=== PATIENT | male | born 1985 | race Caucasian/White ===

== ENCOUNTER 2023-06-26 20:45 | Emergency (ER) | payer SELFPAY ==
[2023-06-26 21:03] VITALS: BP 125/48; PULSE 57; RESP 18; TEMP 36.3; O2SAT 95; BMI 31.2
--- NOTE | 2023-06-27 00:55 | ED_ITS ---
HPI - Skin/Abscess/Foreign Bdy General Chief complaint: Skin/Abscess/Foreign Body Stated complaint: R toe injury Time Seen by Provider: 06/27/23 00:55 Source: patient Mode of arrival: ambulatory Limitations: no limitations History of Present Illness HPI narrative: 38yo male here with complaints of athletes foot to right foot 4th/5th toes for many months despite using intermittent OTC antifungal creams. Does not feel it is helping. Related Data Allergies Allergy/AdvReac Type Severity Reaction Status Date / Time No Known Allergies Allergy Verified 06/26/23 21:02 Review of Systems Review of Systems: Yes all other systems are reviewed and are negative Constitutional: Constitutional: Reports no additional constitutional complaints, Denies body ache(s), Denies chills, Denies fever(s), Denies headache(s) and Denies weakness Eyes: Eyes: Reports no additional eye complaints and Denies change in vision ENT: Reports system reviewed and no additional complaints, except as documented, Denies dizziness, Denies headache(s), Denies nasal congestion, Denies nasal discharge and Denies neck pain Cardiovascular: Cardiovascular: Reports no additional cardiovascular complaints, Denies chest pain, Denies leg edema and Denies dyspnea Respiratory: Respiratory: Reports no additional respiratory complaints, Denies cough and Denies dyspnea Gastrointestinal: Gastrointestinal: Reports no additional gastrointestinal complaints, Denies abdominal pain, Denies diarrhea, Denies nausea and Denies vomiting Genitourinary: Genitourinary: Denies urinary incontinence Musculoskeletal: Musculoskeletal: Reports no additional musculoskeletal complaints, Denies back pain, Denies arthralgias, Denies joint swelling, Denies neck pain, Denies numbness and Denies tingling Integumentary/Breasts: Skin/Breast: Reports system reviewed and no additional complaints, except as docu, Reports erythema and Denies rash Neurologic: Reports system reviewed and no additional complaints, except as documented, Denies Abnormal speech present, Denies dizziness, Denies headache(s), Denies numbness, Denies tingling and Denies weakness PMFSH Past Medical History Attestation statement: The following information was validated with the patient. Source: old records reviewed and nursing notes reviewed Physical Exam Vital Signs: Vital Signs: Last Vital Signs Temp 97.4 F 06/26/23 21:03 Pulse 57 06/26/23 21:03 Resp 18 06/26/23 21:03 BP 125/48 L 06/26/23 21:03 Pulse Ox 95 06/26/23 21:03 O2 Del Method Room Air 06/26/23 21:03 BMI result Body Mass Index 31.2 Const: General: cooperative, healthy appearing, comfortable and no acute distress Orientation/consciousness: patient oriented x3 Limitations: no limitations HEENT: Head: Yes normal to inspection Ears: hearing grossly normal bilaterally General nose exam: Normal external nose present Face and sinus: Yes normal facial exam Mouth: Normal oral and palatal mucosa present Throat: Yes posterior oropharynx normal Eyes: General: appearance normal, both eyes and all related structures Pupils: Equal, round and reactive pupils present Neck: Neck: Yes normal visual inspection Chest: Chest palpation & inspection: normal inspection of the chest Resp: Effort & Inspection: normal respiratory effort Auscultation: clear to auscultation bilaterally Cardio: Rate: regular rate Rhythm: regular rhythm Peripheral pulses: Peripheral pulses 2+ throughout GI: Inspection: Yes normal to inspection Palpation (GI): Soft to palpation and nontender Auscultation: normal bowel sounds Back/Spine/Pelvis: Thoracic/Lumbar Spine: thoracic and lumbar spine normal to inspection Skin: General skin exam: no rashes or lesions noted Neuro: General: patient oriented x3, no focal motor deficits and normal sensation to monofilament Cranial nerves: Yes Equal, round and reactive pupils present Cognition (Neuro): normal cognition Speech: No Abnormal speech present Gait exam (Neuro): Normal gait present Motor exam (neuro): 5/5 motor strength present throughout Extrem: Other: In between the 4th and 5th toes there is erythema, discomfort, with abrasions/ fissures in the skin Medical Decision Making Medical Decision Making MDM Narrative: 38 yo male here with athletes foot to right foot for many months despite intermittent uses of antifungal creams. On exam mild tinea pedis. It sounds like the patient is only intermittently compliant, also not treating shoes/socks or shower/tub surfaces. Also we discussed powder is likely going to be better. Recommended patient use for at least >4 weeks with lotrimin powder and treating above. Differential Diagnosis Differential Diagnoses: The differential diagnosis associated with the presentation includes tinea pedis Low concern for cellulitis Prescription Management I considered prescription management with: Antibiotic no evidence of cellulitis necessitating antibiotic use. Discharge Plan Discharge Clinical Impression: Tinea pedis Patient Disposition: Home, Self-Care Instructions: Athlete's Foot (ED) Additional Instructions: Buy lotrimin powder and treat feet, socks and shoes Wash shower floors with bleach containing product Keep toes and in between the toes as dry as possible Treat the toes for at least 8 weeks Referrals: Physician,Caprice J [Primary Care Provider] - 1 week
== END 2023-06-27 01:01 | disposition home or self-care (01) ==
LOC: HO.ED 06-27 01:00
PROVIDERS: Emergency Provider Emergency Medicine
DX: B35.3 Tinea pedis (principal)
CPT/HCPCS: 99282

== ENCOUNTER 2023-12-02 09:52 | Outpatient (REF) | payer OTHER, SELFPAY ==
[2023-12-02 12:34] LABS: Anion Gap 14 (12-20); Blood Urea Nitrogen 14 mg/dL (9-16); Calcium 9.5 mg/dL (8.4-10.2); Carbon Dioxide 24 mmol/L (22-29); Chloride 104 mmol/L (96-108); Cholesterol 200 mg/dL (<200); Estimated Glomerular Filt Rate > 60; Glucose Random 96 mg/dL (60-115); HDL Cholesterol 46 mg/dL (>40); LDL Cholesterol Calculated 137 mg/dL (<100); Potassium 4.2 mmol/L (3.3-5.1); Sodium 138 mmol/L (135-145); Triglycerides 87 mg/dL (<150)
[2023-12-02 12:48] LABS: HIV AB/AG Nonreactive (Nonreactive); HIV Num 1 0.24 S/CO (0.00-0.99); ~HepC Num1 0.09 S/CO (0.00-0.79); ~Hepatitis C Antibody Nonreactive (Nonreactive)
== END 2023-12-02 09:53 | disposition home or self-care (01) ==
LOC: HO.HHCL 09:52
PROVIDERS: Visit Provider Nurse Practitioner Family
DX: Z00.00 Encounter for general adult medical examination without abnormal findings (principal)
CPT/HCPCS: 36415; 80048; 80061; 86803; 87389

== ENCOUNTER 2023-12-28 15:00 | Outpatient (RCR) | payer OTHER, SELFPAY | END 2024-01-04 16:18 | disposition home or self-care (01) | LOC: HO.PT 15:00 | PROVIDERS: PCP Physician Assistant; Visit Provider Nurse Practitioner Family | DX: M25.511 Pain in right shoulder (principal) | CPT/HCPCS: 97110; 97112; 97162 ==

== ENCOUNTER 2024-01-07 13:24 | Outpatient (REF) | payer OTHER, SELFPAY ==
--- NOTE | ~2024-01-07 | XR_ITS ---
EXAMINATION: XR SHOULDER, RIGHT CLINICAL INFORMATION: Atraumatic right shoulder pain. COMPARISON: None available. TECHNIQUE: AP external rotation, Grashey, scapular Y, and axillary views of the right shoulder. FINDINGS: Glenohumeral and acromioclavicular alignment is anatomic with normal joint space. No displaced fracture or dislocation. No abnormal soft tissue calcifications. XR/XR shoulder RT min 2V IMPRESSION: No acute abnormality.
== END 2024-01-07 13:25 | disposition home or self-care (01) ==
LOC: HO.HHCX 13:24
PROVIDERS: Visit Provider Emergency Medicine
DX: M25.511 Pain in right shoulder (principal); G89.29 Other chronic pain
CPT/HCPCS: 73030

== ENCOUNTER 2024-03-18 15:53 | Outpatient (REF) | payer MEDICAID, SELFPAY | END 2024-03-18 15:54 | disposition home or self-care (01) | LOC: HO.HHCL 15:53 | PROVIDERS: Visit Provider Emergency Medicine | DX: Z13.89 Encounter for screening for other disorder (principal) ==

== ENCOUNTER 2024-03-21 14:03 | Outpatient (AMB) | payer MEDICAID, SELFPAY ==
--- NOTE | 2024-03-21 14:41 | MHC.OFFVIS ---
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 Patient reports ongoing pain for about 7 - 8 months. 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 However he started to feel a sharp pain in his shoulder a couple weeks after. Allergies No Known Allergies Allergy (Verified 03/21/24 14:48) HPI HPI MEDIA PLANNER-Right shoulder pain-follow up: Details: 38-year-old right hand dominant male who presents in the office today, as a new patient, for an evaluation of right shoulder pain. Patient was referred to the office by Family Medicine status post a complaint of 3 months, since 10/2023, of right shoulder pain. X-rays were obtained. 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 He states he was using a ratchet strap, and he was ratcheting something on to the back of the truck, and when he brought his arm up, he brought it up and back overextending the right upper extremity on 10/13/2023. He reports he can move the right upper extremity with pain but cannot lift without the help of the left upper extremity. Patient reports attending 5-6 formal physical therapy sessions and continuing to work with the home exercise program. He states this has given him no relief of symptoms. 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 He reports he will be leaving in 8 days 03/29/2024 to go for a one-month training. [facility] Social History (Updated 03/21/24 @ 14:45 by Lavinia Sorensen) Alcohol intake: never Patient Tobacco Use Status: Never used Tobacco Current occupational status: employed Current occupation: truck drive/ right hand dominant Review of Systems Const All systems reviewed & are unremarkable except as noted in HPI and below Physical Exam Const General: cooperative and no acute distress Orientation/consciousness: patient oriented x3 Resp Effort & Inspection: normal respiratory effort and able to speak in complete sentences Cardio Peripheral pulses: Peripheral pulses 2+ throughout Skin General skin exam: no rashes or lesions noted Neuro General: patient oriented x3 Extrem Other: Right shoulder: Normal to inspection. No ecchymosis, erythema, or edema. Full shoulder ROM in all planes. Pain with cross-body reach. 3/5 strength with empty can. Negative drop arm. NVI. Assessment & Plan Assessment & Plan (1) Rotator cuff injury: Code(s): S46.009A - Unspecified injury of muscle(s) and tendon(s) of the rotator cuff of unspecified shoulder, initial encounter Category: Medical Qualifiers: Encounter type: initial encounter Laterality: right Qualified Code(s): S46.001A - Unspecified injury of muscle(s) and tendon(s) of the rotator cuff of right shoulder, initial encounter Plan Mr. Sears is a 38-year-old right hand dominant male who presents in the office today, as a new patient, for an evaluation of right shoulder pain. Patient was referred to the office by Family Medicine status post a complaint of 3 months, since 10/2023, of right shoulder pain. X-rays were obtained. 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 He states he was using a ratchet strap, and he was ratcheting something on to the back of the truck, and when he brought his arm up, he brought it up and back overextending the right upper extremity on 10/13/2023. He reports he can move the right upper extremity with pain but cannot lift without the help of the left upper extremity. Patient reports attending 5-6 formal physical therapy sessions and continuing to work with the home exercise program. He states this has given him no relief of symptoms. 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 He reports he will be leaving in 8 days 03/29/2024 to go for a one-month training. Discussed the role of cortisone injections but have agreed to defer at this time due to pain with ROM and weakness in strength. A referral for an MRI was made in the office today. My card was supplied to the patient, and he will call after the MRI is obtained. Due to his upcoming work training trip the patient understands that the MRI might not be obtained until after his return. Follow up will be after the MRI is obtained, or sooner if needed. X-rays of the right shoulder, obtained on 01/07/2024, revealed: No acute fracture or dislocation. Orders: Orders MR shoulder RT wo con 03/21/24 S46.009A - Unspecified injury of muscle(s) and tendon(s) of the rotator cuff of unspecified shoulder, initial encounter Patient Instructions: Scribed by Hiwot Miranda durable medical equipment technician, for Chana Costa PA-C on 03/21/2024 at 4:44 pm, EST. Coding Level of Care Code New Pt Level 4 (69542) Diagnoses Injury of right rotator cuff, initial encounter S46.001A Encounter type: initial encounter Laterality: right
== END 2024-03-21 15:31 | disposition home or self-care (01) ==
PROVIDERS: PCP Physician Assistant; Visit Provider Physician Assistant
DX: S46.001A Unspecified injury of muscle(s) and tendon(s) of the rotator cuff of right shoulder, initial encounter (principal)
CPT/HCPCS: 99204

== ENCOUNTER → 2024-03-21 14:03 | Outpatient (BNVA) | payer MEDICAID, SELFPAY | PROVIDERS: PCP Physician Assistant; Visit Provider Physician Assistant | DX: S46.001A Unspecified injury of muscle(s) and tendon(s) of the rotator cuff of right shoulder, initial encounter (principal); W22.09XA Striking against other stationary object, initial encounter; Y93.89 Activity, other specified; Y92.69 Other specified industrial and construction area as the place of occurrence of the external cause; Y99.0 Civilian activity done for income or pay | CPT/HCPCS: 99212 ==

== ENCOUNTER 2024-03-22 16:13 | Outpatient (REF) | payer MEDICAID, SELFPAY | END 2024-03-22 16:14 | disposition home or self-care (01) | LOC: HO.HHCLNP 16:13 | PROVIDERS: Visit Provider Emergency Medicine | DX: R19.7 Diarrhea, unspecified (principal) | CPT/HCPCS: 87338 ==

== ENCOUNTER 2024-04-15 17:56 | Outpatient (REF) | payer OTHER, SELFPAY | END 2024-04-15 17:57 | disposition home or self-care (01) | LOC: HO.HHCLNP 17:56 | PROVIDERS: Visit Provider Emergency Medicine | DX: A04.8 Other specified bacterial intestinal infections (principal) | CPT/HCPCS: 87338 ==

== ENCOUNTER 2024-04-21 18:50 | Outpatient (REF) | payer OTHER, SELFPAY ==
--- NOTE | ~2024-04-21 | MR_ITS ---
EXAMINATION: MR SHOULDER WITHOUT CONTRAST, RIGHT CLINICAL INFORMATION: Rotator cuff injury. COMPARISON: X-ray 01/07/2024 TECHNIQUE: MRI of the shoulder without contrast was performed on a high-field scanner. FINDINGS: ROTATOR CUFF: Mild tendinosis of the supraspinatus and anterior fibers of the infraspinatus. Possible small 3 mm intrasubstance tear in the conjoined fibers. Teres minor is intact. Mild subscapularis tendinosis, with a possible longitudinal thin linear intrasubstance partial tear. No muscle atrophy or fatty infiltration. BICEPS: Intact. CORACOACROMIAL ARCH: The undersurface of the acromion is curved with no subacromial spur. Moderate acromioclavicular arthritis, prominent distal clavicle and acromial edema, subchondral cysts. LABRUM/CAPSULE: Inferior labral tear, with a subjacent 8mm paralabral cyst. Superior labral intermediate signal could reflect degenerative signal. Intact inferior capsule. GLENOHUMERAL JOINT/MARROW: No acute fracture. No significant arthropathy seen. No significant joint effusion. MR/MR shoulder RT wo con IMPRESSION: 1. Mild tendinosis of the supraspinatus and anterior fibers infraspinatus. Possible small 3 mm intrasubstance tear in the conjoined fibers. 2. Mild subscapularis tendinosis with possible longitudinally oriented linear intrasubstance partial tear. 3. Inferior labral tear with subjacent 8 mm paralabral cyst. Possible superior labral degeneration. 4. Moderate acromioclavicular arthritis.
== END 2024-04-21 18:51 | disposition home or self-care (01) ==
LOC: HO.MRI 18:50
PROVIDERS: PCP Nurse Practitioner Family; Visit Provider Physician Assistant
DX: S46.001D Unspecified injury of muscle(s) and tendon(s) of the rotator cuff of right shoulder, subsequent encounter (principal)
CPT/HCPCS: 73221

== ENCOUNTER 2024-05-13 12:42 | Outpatient (AMB) | payer OTHER, SELFPAY ==
--- NOTE | 2024-05-13 12:45 | A.OFFVIS_ITS ---
Intake Visit Reasons: OV - right shoulder MRI review Intake Note: Denilson is a 38 year old male who presents today for a MRI review of his right shoulder. Patient reports he is still having pain in his shoulder. Allergies No Known Allergies Allergy (Verified 05/13/24 12:46) HPI HPI OV - right shoulder MRI review: Details: 38-year-old right hand dominant male who presents in the office today for a follow-up of right shoulder pain and MRI review. I last saw the patient in the office on 03/21/2024 when cortisone injections were deferred due to pain with ROM and weakness in strength. ? While in the office today, the patient reports continued pain in his right shoulder.? [facility] Social History (Updated 03/21/24 @ 14:45 by Lavinia Sorensen) Alcohol intake: never Patient Tobacco Use Status: Never used Tobacco Current occupational status: employed Current occupation: truck drive/ right hand dominant Review of Systems Const All systems reviewed & are unremarkable except as noted in HPI and below Physical Exam Const General: cooperative, healthy appearing and no acute distress Resp Effort & Inspection: normal respiratory effort and able to speak in complete sentences Cardio Rate: regular rate Peripheral pulses: Peripheral pulses 2+ throughout GI Palpation (GI): Soft to palpation Skin Lesions: no lesions Rashes: no rashes Extrem Other: Right shoulder: Normal to inspection. No ecchymosis, erythema, or edema. Full shoulder ROM in all planes. Pain with cross-body reach. 3/5 strength with empty can. Negative drop arm. NVI. Assessment & Plan Assessment & Plan (1) Rotator cuff injury: Code(s): S46.009A - Unspecified injury of muscle(s) and tendon(s) of the rotator cuff of unspecified shoulder, initial encounter Category: Medical Qualifiers: Encounter type: initial encounter Laterality: right Qualified Code(s): S46.001A - Unspecified injury of muscle(s) and tendon(s) of the rotator cuff of right shoulder, initial encounter Plan Mr. Piper is a 38-year-old right hand dominant male who presents in the office today for a follow-up of right shoulder pain and MRI review. I last saw the patient in the office on 03/21/2024 when cortisone injections were deferred due to pain with ROM and weakness in strength. An?MRI was ordered at that time. ? ? While in the office today, the patient reports continued pain in his right shoulder.? ? There is no surgical intervention needed at this time. I have placed a referral to physical therapy to work on ROM and strengthening. We readdressed the role of cortisone injections. However, the patient would like to defer at this time due to a concern that the injection will make his shoulder worse. Follow-up will be in six weeks via telehealth, or sooner if needed. ? ? MRI of the right shoulder, obtained on 04/21/2024, revealed:? 1. Mild tendinosis of the supraspinatus and anterior fibers? infraspinatus. Possible small 3 mm intrasubstance tear in the conjoined fibers.? 2. Mild subscapularis tendinosis with possible longitudinally oriented linear intrasubstance partial tear.? 3. Inferior labral tear with subjacent 8 mm paralabral cyst. Possible superior labral degeneration.? 4. Moderate acromioclavicular arthritis.? Orders: Orders PT Evaluation and Treatment Today S46.001A - Unspecified injury of muscle(s) and tendon(s) of the rotator cuff of right shoulder, initial encounter Patient Instructions: Scribed by Hiwot Miranda medical office receptionist, for Chana Costa PA-C on 05/13/2024 at 1:57 pm, EST.? Coding Level of Care Code New Pt Level 4 (94211) Diagnoses Injury of right rotator cuff, initial encounter S46.001A Encounter type: initial encounter Laterality: right
== END 2024-05-13 13:03 | disposition home or self-care (01) ==
PROVIDERS: PCP Nurse Practitioner Family; Visit Provider Physician Assistant
DX: S46.001A Unspecified injury of muscle(s) and tendon(s) of the rotator cuff of right shoulder, initial encounter (principal)
CPT/HCPCS: 99214

== ENCOUNTER → 2024-05-13 12:42 | Outpatient (BNVA) | payer OTHER, SELFPAY | PROVIDERS: PCP Nurse Practitioner Family; Visit Provider Physician Assistant | DX: S46.001D Unspecified injury of muscle(s) and tendon(s) of the rotator cuff of right shoulder, subsequent encounter (principal) | CPT/HCPCS: 99212 ==

== ENCOUNTER 2025-02-02 15:39 | Emergency (ER) | payer OTHER, SELFPAY ==
[2025-02-02 16:09] VITALS: BP 138/92; PULSE 78; RESP 20; TEMP 37.4; O2SAT 94; BMI 33.7
--- NOTE | 2025-02-02 16:13 | ED.GENADULT ---
HPI - General Adult General Chief complaint: Upper Respiratory Symptoms Stated complaint: fever,sore throat Time Seen by Provider: 02/02/25 17:24 Source: patient, RN notes reviewed and old records reviewed Mode of arrival: ambulatory Limitations: no limitations History of Present Illness ED Provider: Deondre TUTTLE narrative: Patient is a 39-year-old male presenting to the emergency department with complaint of sore throat, subjective fevers, occasional cough since yesterday. Denies any known sick contacts. Able to manage secretions. complaint: sore throat Onset (ago): day(s) Related Data Allergies Allergy/AdvReac Type Severity Reaction Status Date / Time No Known Allergies Allergy Verified 02/02/25 16:12 Review of Systems Review of Systems: As per HPI. Yes all other systems are reviewed and are negative Constitutional: Constitutional: Reports as per HPI [facility] Social History Social History (Updated 03/21/24 @ 14:45 by Lavinia Sorensen) Alcohol intake: never Patient Tobacco Use Status: Never used Tobacco Do you have a plan to hurt others: No Plan Current occupational status: employed Current occupation: truck drive/ right hand dominant Physical Exam ED Vital Signs: Vital Signs - 24 hr 02/02/25 16:09 Temperature 99.3 F Pulse Rate 78 Respiratory Rate 20 Blood Pressure 138/92 H Pulse Oximetry 94 Oxygen Delivery Method Room Air BMI result Body Mass Index 33.7 Vital signs have been reviewed and appear to be correct. Blood pressure normal. Heart rate normal. Respiratory rate normal. Temperature normal. Oxygen saturation normal. Const General: cooperative, healthy appearing and no acute distress Orientation/consciousness: oriented to person, oriented to place, oriented to time and patient oriented x3 Limitations: no limitations HENMT Head: Yes normocephalic and Yes atraumatic Ears: external ears normal, TM's normal bilaterally and EAC's normal General nose exam: Normal external nose present and Normal nasal mucous membranes and turbinates present Face and sinus: Yes face symmetric Mouth: Normal oral and palatal mucosa present, lip normal, tongue normal, oropharynx normal, moist mucous membranes, no audible dysphonia, no drooling and no trismus Throat: Yes posterior oropharynx normal, Yes uvula midline, Yes abnormal tonsil (erythema, no edema or exudate), No peritonsillar mass and No uvular edema Eyes Pupils: Equal, round and reactive pupils present Neck Neck: Yes normal visual inspection, Yes no lymphadenopathy and Yes supple Resp Effort & Inspection: normal respiratory effort and able to speak in complete sentences Auscultation: clear to auscultation bilaterally Cardio Rate: regular rate Rhythm: regular rhythm Heart sounds: S1 normal heart sound present and S2 normal heart sound present GI Palpation (GI): Soft to palpation and nontender Auscultation: normoactive bowel sounds General: Yes no CVA tenderness Back/Spine/Pelvis Back: no CVA tenderness Skin General skin exam: elasticity normal and turgor normal Neuro General: oriented to person, oriented to place, oriented to time, patient oriented x3, moves all extremities, no focal motor deficits and CN's II-XI intact bilaterally Cranial nerves: Yes Equal, round and reactive pupils present Cognition (Neuro): normal cognition Extrem General: Yes full ROM, Yes no pedal edema and Yes no calf tenderness Psych Mental Status: mental status grossly normal Affect: normal affect Thought process: Normal thought process present Course Course Course Narrative: This is a rapid medical exam performed by Gerard Mendosa NP: Additional HPI, ROS, PE not included below will be deferred to primary provider. 02/02/25 16:13 Patient is a 39-year-old male presenting to the emergency department with complaint of sore throat, fevers, cough since yesterday. Denies any known sick contacts. Managing secretions in triage, tonsils erythematous, no edema or exudate. Plan: Strep and viral swabs Medical Decision Making Medical Decision Making [facility] Narrative: Patient is a 39-year-old male presenting to the emergency department with complaint of sore throat, subjective fevers, occasional cough since yesterday. On exam patient is awake, A+Ox3, VS WNL, afebrile, normal neurological exam without focal deficits, physical exam findings as above. Given reported symptoms and physical exam findings, initial differential includes but is not limited to strep versus viral pharyngitis, other viral illness, COVID, flu. 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 Strep and viral serology negative. Patient updated on results and all questions answered. Patient treated with 1 time dose of dexamethasone in the emergency department. Advised him to use Tylenol ibuprofen at home, gargle with warm salt water. Return precautions discussed. Patient verbalized understanding of and agreement with plan. Differential Diagnosis Differential Diagnoses: The differential diagnosis associated with the presentation includes As per MDM Lab Data [facility] Lab Attestation statement: I reviewed the patient's lab results. As per [facility] Labs: Lab Results 02/02/25 Range/Units 16:37 Influenza Type A (PCR) NEGATIVE (Negative) Influenza Type B (PCR) NEGATIVE (Negative) RSV RNA Qual (PCR) NEGATIVE (Negative) SARS-CoV-2 RNA (RT-PCR) NEGATIVE (Negative) S. pyogenes GrpA DAVID Negative (Negative) External Record Review External record reviewed: Inpatient record, Office record and Outpatient record Prescription Management I considered prescription management with: Other Discharge Plan Discharge Clinical Impression: Pharyngitis Patient Disposition: Home, Self-Care Instructions: Pharyngitis (ED) Additional Instructions: You were evaluated in the emergency department today for a sore throat. Your COVID, flu, and strep swabs were all negative. Your symptoms are likely related to a viral infection which will resolve on its own with time and rest. Be sure to drink adequate fluids. You can use Tylenol and ibuprofen per package directions as needed for discomfort. You can also gargle with warm salt water several times daily. You were given a one time dose of steroids in the emergency department which will decrease inflammation for the next few days. Follow-up with your primary care provider this week. Return to the emergency department if you develop difficulty swallowing, worsening pain, shortness of breath, are unable to swallow your saliva, or any other concerning symptoms. Stand Alone Forms: Work/School Release Print Language: Danish
[2025-02-02 16:51] LABS: IDNOW Serial# 55D5AD1C; Strep A Nucleic Acid Negative (Negative)
[2025-02-02 17:20] LABS: Influenza A PCR NEGATIVE (Negative); Influenza B PCR NEGATIVE (Negative); Resp Syncy Virus RNA Qual PCR NEGATIVE (Negative); SARS COV2 PCR INHOUSE NEGATIVE (Negative)
[2025-02-02] MEDS: dexAMETHasone sod phosphate 10 MG/ML VIAL PO (17:30)
[2025-02-02 17:36] VITALS: BP 138/92; PULSE 78; RESP 20; TEMP 37.4; O2SAT 94
== END 2025-02-02 18:06 | disposition home or self-care (01) ==
LOC: HO.ED 18:03
PROVIDERS: Registered Nurse Emergency; Emergency Provider Emergency Medicine Emergency Medical Services
DX: J02.9 Acute pharyngitis, unspecified (principal); Z03.818 Encounter for observation for suspected exposure to other biological agents ruled out; R05.9 Cough, unspecified; R50.9 Fever, unspecified
CPT/HCPCS: 0241U; 87651; 99282; 99283; J1100